=== PATIENT | male | born 1960 | race Caucasian/White ===

== ENCOUNTER 2020-03-08 11:19 | Outpatient (CLI) | payer OTHER | END 2020-03-08 11:20 | disposition home or self-care (01) | LOC: LAB 11:19 | PROVIDERS: ATTEND Surgery | DX: Z01.812 Encounter for preprocedural laboratory examination (principal); K40.90 Unilateral inguinal hernia, without obstruction or gangrene, not specified as recurrent; Z20.828 Contact with and (suspected) exposure to other viral communicable diseases | CPT/HCPCS: 81599 ==

== ENCOUNTER 2020-03-13 08:23 | Day surgery (SDC) | payer OTHER ==
[~2020-03-13 08:23] MED LIST: CEFAZOLIN SODIUM IN 0.9 % NACL 2 GM/100 ML BAG IV ONE
[2020-03-13] MEDS ORDERED: NEOSTIGMINE 1 MG/1 ML 10 ML MDV IVP ONE (08:24)
[2020-03-13] MEDS ORDERED: KETOROLAC 30 MG/ML VIAL IVP ONE (08:24)
[2020-03-13] MEDS ORDERED: ROCURONIUM 50 MG/5 ML VIAL IVP ONE (08:24)
[2020-03-13] MEDS ORDERED: PROPOFOL 200 MG/20 ML VIAL IVP ONE (08:24)
[2020-03-13] MEDS ORDERED: GLYCOPYRROLATE 1 MG/5 ML VIAL IVP ONE (08:24)
[2020-03-13] MEDS ORDERED: KETAMINE 500 MG/10 ML VIAL IVP ONE (08:24)
[2020-03-13] MEDS ORDERED: fentaNYL 100 MCG/2 ML VIAL IVP ONE (08:24)
[2020-03-13] MEDS ORDERED: ONDANSETRON 4 MG/2 ML VIAL IVP ONE (08:24)
[2020-03-13] MEDS ORDERED: MIDAZOLAM 2 MG/2 ML VIAL IVP ONE (08:24)
[2020-03-13] MEDS ORDERED: LACTATED RINGERS 1,000 ML IV ONE ×2 (08:28→11:17)
[2020-03-13] MEDS ORDERED: BUPIVACAINE 0.25% PF 30 ML VIAL SUBQ ONE (08:50)
--- NOTE | 2020-03-13 09:00 | ANESTHESIA ---
Pre-Anesthesia VS, & Labs - Diagnosis bilateral inguinal hernias - Procedure laparoscopic inguinal hernia repair-bilateral Vital Signs: Temp Pulse Resp BP Pulse Ox 36.2 C L 100 16 141/101 H 98 03/13/20 08:30 03/13/20 08:30 03/13/20 08:30 03/13/20 08:30 03/13/20 08:30 Height 5 ft 6 in Weight (kg) 63 kg Home Medications and Allergies Home Medications: Ambulatory Orders Latanoprost 0.005% Ophth Drops [Xalatan Ophth Drops] 1 drops EACHEYE QPM 02/29/20 Latanoprost 0.005% Ophth Drops [Xalatan Ophth Drops] 1 drops EACHEYE QPM 02/29/20 Allergies/Adverse Reactions: Allergies Allergy/AdvReac Type Severity Reaction Status Date / Time No Known Drug Allergies Allergy Verified 02/29/20 11:58 Anes History & Medical History - Anesthetic History Anesthesia Complications: reports: No previous complications Family history of Anesthesia Complications: Denies Family history of Malignant Hyperthermia: Denies - Medical History Cardiovascular: reports: None Pulmonary: reports: Sleep apnea, CPAP use, Other (1/2 ppd x 40 years) Gastrointestinal: reports: None Urinary: reports: None Neuro: reports: None Musculoskeletal: reports: None Endocrine/Autoimmune: reports: None Blood Disorders: reports: None Skin: reports: None Smoking Status: Current every day smoker Psychosocial: reports: Cannabis (1/2 gram at night) - Surgical History General: Colonoscopy Exam General: Alert, Oriented x3, Cooperative, No acute distress Dental: WNL Mouth Openin Fingerbreadth Neck Mobility: Normal Thyromental Distance: 4-6 cm Respiratory: Lungs clear, Normal breath sounds, No respiratory distress, No accessory muscle use Cardiovascular: Regular rate, Normal S1, Normal S2, No murmurs Abdomen: Normal bowel sounds, Soft, No tenderness, No hepatospenomegaly, No masses Extremities: No clubbing, No cyanosis, No edema, Normal pulses, No tenderness/swelling Neurological: Normal gait, Normal speech, Strength at 5/5 X4 ext, Normal tone, Sensation intact, Cranial nerves 3-12 NL, Reflexes 2+ Mental/Cognitive Status: Alert/Oriented X3, Normal for patient Cognitive Status: Within normal limits Plan Anesthesia Type: General Consent for Procedure(s) Verified and Reviewed: Yes Code Status: Attempt Resuscitation ASA classification: 2-Mild systemic disease Is this case an emergency?: No
[2020-03-13] MEDS ORDERED: BUPIVACAINE 0.25% PF 30 ML VIAL ONE ×2 (09:28→12:09)
[2020-03-13] MEDS ORDERED: BUPIVACAINE 0.25% PF 10 ML VIAL SUBQ ONE (12:10)
[2020-03-13] MEDS ORDERED: HYDROcod/ACETAM 5/325 MG TABLET PO PRN (12:28)
[2020-03-13 13:25] VITALS: BP 131/91
--- NOTE | 2020-03-13 16:48 | OPERATIVE REPORT ---
DATE OF SERVICE: 03/13/2020 Physician: Mohan Richardson MD PREOPERATIVE DIAGNOSIS: Bilateral inguinal hernia. POSTOPERATIVE DIAGNOSIS: Bilateral inguinal hernia, very large, direct. PROCEDURE PERFORMED: Laparoscopic preperitoneal bilateral inguinal hernia repair with mesh. SURGEON: Mohan Richardson MD CLOUD OPERATIONS ENGINEER: None. ANESTHESIA 1. General endotracheal. 2. Local anesthesia with Marcaine. COMPLICATIONS: None. SPECIMENS: None. ESTIMATED BLOOD LOSS: None. DRAINS: None. PROSTHETIC: Large Bard preformed mesh placed bilateral. FINDINGS: Large direct inguinal hernias, bilateral, no indirect inguinal hernias. INDICATIONS FOR PROCEDURE: Patient is an active 59-year-old gentleman with bilateral inguinal hernias for 20 years. They have progressed in size as well as symptoms. He presents for laparoscopic repair. Risks discussed, alternatives discussed. All questions answered and consent obtained. DETAILS OF PROCEDURE: Patient was properly identified, brought to the operating room and placed in supine position. General endotracheal anesthesia was induced. Sequential compression devices and Gill catheter were placed. He was prepped and draped in a sterile fashion and given preoperative antibiotics. Local anesthetic was given to incision areas and then the operative area. An infraumbilical 3 cm incision was made. Dissection proceeded down to the fascia. The fascia was opened slightly right lateral of midline. The preperitoneal space was carefully developed with digital blunt dissection. A Adam trocar was then placed and secured with 3 interrupted 0 Vicryl sutures. A 30-degree scope was used. In the midline, two 5 mm trocars were placed between the pubis and the umbilicus. The right side was first approached. A preperitoneal space was carefully developed. The inferior epigastrics were kept along the cord structures. He had significant scarring of the peritoneum to the abdominal wall bilaterally. The peritoneum was also quite thin. The peritoneum was further pulled away from the cord structures. A small hole occurred on the right along the cord structures, which was later closed with an 0 Endoloop. A large pocket was created on the right to allow for the large Bard preform mesh. He had significant direct defect. Left side was then approached. It was quite similar with peritoneum significantly scarred to the abdominal wall. A large space was again created. There were no indirect inguinal hernias. On the left, he had a small amount of herniated preperitoneal adipose tissue, which was pulled back and reduced. A large Bard preformed mesh was placed bilaterally. It was secured at the pubic tubercle along Boby's ligament and anterior under the rectus muscle. Tacks were not placed lateral to the rectus given his very thin abdominal wall. CO2 was evacuated under vision. The mesh lay in very good position. There was some CO2 in the abdomen, which was released at the infraumbilical site. Fascia at the infraumbilical site was then closed with a total of 5 interrupted 0 Vicryl sutures. Skin was closed with buried interrupted or running 4-0 Monocryl subcuticular suture. Dressings were applied. He tolerated the procedure very well. TD: 03/13/2020 14:52 ED
== END 2020-03-13 08:24 | disposition home or self-care (01) ==
LOC: SDS 08:23
PROVIDERS: ATTEND Surgery
DX: K40.20 Bilateral inguinal hernia, without obstruction or gangrene, not specified as recurrent (principal); G47.30 Sleep apnea, unspecified; F17.210 Nicotine dependence, cigarettes, uncomplicated
CPT/HCPCS: 49650; C1781; J0690; J7120

== ENCOUNTER 2024-01-01 06:18 | Day surgery (SDC) | payer OTHER ==
[2024-01-01] MEDS: LACTATED RINGERS 1,000 ML IV ONE ×2 (06:27→08:17)
[2024-01-01] MEDS ORDERED: MIDAZOLAM 2 MG/2 ML VIAL ONE (06:55)
--- NOTE | 2024-01-01 07:05 | ANESTHESIA ---
Pre-Anesthesia VS, & Labs - Diagnosis screening - Procedure colonoscopy Vital Signs: Temp Pulse Resp BP Pulse Ox O2 Flow Rate 36.3 C L 98 16 128/98 H 98 0 01/01/24 06:36 01/01/24 07:00 01/01/24 06:46 01/01/24 07:00 01/01/24 06:46 01/01/24 06:36 Height: 5 ft 6 in Weight (kg): 66.7 kg Body Mass Index: 23.7 BMI Classification: Normal - NPO >8 hours - Lab Results Lab results reviewed: Yes Home Medications and Allergies Latanoprost 0.005% Ophth Drops [Xalatan Ophth Drops] 1 drops EACHEYE QPM 02/29/20 Allergies/Adverse Reactions: Allergies Allergy/AdvReac Type Severity Reaction Status Date / Time No Known Drug Allergies Allergy Verified 12/31/23 12:20 Anes History & Medical History - Anesthetic History Anesthesia Complications: reports: No previous complications Family history of Anesthesia Complications: Denies Family history of Malignant Hyperthermia: Denies - Medical History Cardiovascular: reports: None Pulmonary: reports: Sleep apnea Gastrointestinal: reports: None Urinary: reports: None Neuro: reports: None Musculoskeletal: reports: Osteoarthritis Endocrine/Autoimmune: reports: None Blood Disorders: reports: None Skin: reports: None Smoking Status: Current every day smoker - Surgical History General: reports: Colonoscopy, Other (hernia) Exam General: Alert, Oriented x3, Cooperative Dental: WNL Mouth Openin Fingerbreadth Neck Mobility: Normal Mallampati classification: II Thyromental Distance: 4-6 cm Respiratory: Lungs clear, Normal breath sounds, No respiratory distress Cardiovascular: Regular rate (tachy in admit, SR after 20 mins) Neurological: Normal speech Mental/Cognitive Status: Alert/Oriented X3, Normal for patient Cognitive Status: Within normal limits Plan Anesthesia Type: Total IV Consent for Procedure(s) Verified and Reviewed: Yes Code Status: Attempt Resuscitation ASA classification: 2-Mild systemic disease Is this case an emergency?: No
--- NOTE | 2024-01-01 07:26 | HISTORY & PHYSICAL EXAMINATION ---
Chief Complaint - Chief Complaint Chief Complaint: here for colonoscopy History of Present Illness - History Obtained From Records Reviewed: yes History obtained from: pt Exam Limitations: none - History of Present Illness HPI Comment/Other: normal colonoscopy 12 years ago. positive cologuard 3 weeks ago. no gi symptoms. doing well after hernia repair a few years ago. History - Past Medical History Cardiovascular: reports: None Respiratory: reports: Sleep apnea Neuro: reports: None Endocrine/Autoimmune: reports: None GI: reports: None : reports: None HEENT: reports: None Psych: reports: None Musculoskeletal: reports: Osteoarthritis Derm: reports: None MRSA Hx?: No - Past Surgical History General: reports: Colonoscopy, Other (hernia) Meds/Allgy - Home Medications Home Medications: Ambulatory Orders Medication Instructions Recorded Confirmed Latanoprost 0.005% Ophth Drops 1 drops EACHEYE QPM 02/29/20 12/31/23 [Xalatan Ophth Drops] - Allergies Allergies/Adverse Reactions: Allergies Allergy/AdvReac Type Severity Reaction Status Date / Time No Known Drug Allergies Allergy Verified 12/31/23 12:20 Review of Systems - Other Findings Other Findings: 10 pt ros as above otherwise unremarkable Exam - Vital Signs Vital Signs: Vital Signs x48h Temp Pulse Resp BP Pulse Ox O2 Flow Rate 01/01/24 07:00 98 128/98 H 01/01/24 06:46 106 H 16 143/101 H 98 01/01/24 06:36 36.3 C L 103 H 20 152/100 H 100 0 - Physical Exam General Appearance: positive: Alert Eyes Bilateral: positive: PERRL, EOMI ENT: positive: No signs of dehydration Neck: positive: No JVD, Trachea midline Respiratory: positive: No respiratory distress Cardiovascular: positive: Regular rate & rhythm Abdomen: positive: Non-tender, No distention Neurologic/Psychiatric: positive: Oriented x3 Conclusion/Plan - Problem List (1) Colon cancer screening Conclusion/Plan: plan colonoscopy. parq held and consent obtained - Lab Results Lab results reviewed: Yes
[2024-01-01] MEDS ORDERED: PROPOFOL 500 MG/50 ML 500 MG/50 ML VIAL ONE (07:29)
[2024-01-01] MEDS ORDERED: LIDOCAINE-PF 2% 10 ML AMP SUBQ ONE (07:42)
[2024-01-01 08:40] VITALS: BP 139/98; O2SAT 98
--- NOTE | 2024-01-01 08:53 | ANESTHESIA POST OP EVALUATION ---
Anesthesia Post Eval - Post Anesthesia Eval Vitals: Last Vital Signs Temp 36.0 C L 01/01/24 08:35 Pulse 83 01/01/24 08:35 Resp 16 01/01/24 08:35 BP 139/98 H 01/01/24 08:35 Pulse Ox 98 01/01/24 08:35 O2 Flow Rate 0 01/01/24 06:36 CV Function Including HR & BP: Stable Pain Control: Satisfactory Nausea & Vomiting: Negative Mental Status: Baseline Respiratory Status: Airway Patent Hydration Status: Satisfactory Anesthesia Complications: None
== END 2024-01-01 06:19 | disposition home or self-care (01) ==
LOC: SDS 06:18
PROVIDERS: ATTEND Surgery
PROC: 0DBL8ZZ Excision of Transverse Colon, Via Natural or Artificial Opening Endoscopic (ICD-10-PCS; 2024-01-01)
PROC: 0DBK8ZZ Excision of Ascending Colon, Via Natural or Artificial Opening Endoscopic (ICD-10-PCS; principal; 2024-01-01 07:30)
DX: R19.5 Other fecal abnormalities (principal); D12.2 Benign neoplasm of ascending colon; K57.30 Diverticulosis of large intestine without perforation or abscess without bleeding; K63.5 Polyp of colon; G47.30 Sleep apnea, unspecified; F17.200 Nicotine dependence, unspecified, uncomplicated
CPT/HCPCS: 45385; J7120

== ENCOUNTER 2024-05-31 06:56 | Outpatient (CLI) | payer OTHER ==
--- NOTE | 2024-06-01 14:15 | Ultrasound Report ---
PROCEDURE: Abdomen Limited INDICATIONS: DISEASE OF LIVER TECHNIQUE: Real-time focused scanning was performed of the abdomen, with image documentation. COMPARISONS: None. FINDINGS: Liver: Liver is normal in size. Echogenic liver parenchyma is seen suggestive of hepatic steatosis. 3.3 x 3.2 x 4.1 cm heterogeneously hyperechoic and solid appearing lesion is seen in inferior right h epatic lobe and show no internal vascularity. 4 x 3 x 3.1 cm heterogeneously hypoechoic structure is noted in the superior aspect of right hepatic lobe and show no internal vascularity. 1.5 x 1.2 x 1.8 cm slightly hyperechoic and solid appearing nodule is noted in medial right hepatic lobe. No internal vascularity is seen. Gallbladder: No gallstones, sludge, wall thickening or pericholecystic edema. Biliary ducts: Intrahepatic bile ducts are non-dilated. Extrahepatic bile duct caliber measures 2.8 mm. Normal is 6-7 mm or less in diameter, or 10 mm or less post-cholecystectomy. Pancreas: Visualized portions of the pancreas are sonographically normal. Right kidney: Normal in size and echotexture. Right kidney measures 11.3 cm long. No hydronephrosis or nephrolithiasis. No solid masses. No complex renal cystic lesions which require follow-up. IVC: Intrahepatic inferior vena cava is patent. Miscellaneous: No free abdominal fluid. IMPRESSION: 1. Suggestion of hepatic steatosis. At least 3 solid appearing lesions are noted in right hepatic lob e as described above. Finding could represent a hemangioma. Consider dedicated MRI of abdomen without and with contrast for further evaluation of this region. 2. Rest of the exam is unremarkable. Reviewed by: Alfredo Polo MD on 06/01/2024 2:14 PM PDT Approved by: Alfredo Polo MD on 06/01/2024 2:14 PM PDT Station ID: [id number]
== END 2024-05-31 06:57 | disposition home or self-care (01) ==
LOC: DI 06:56
DX: K76.9 Liver disease, unspecified (principal)